=== PATIENT | male | born 2005 | race Caucasian/White ===

== ENCOUNTER 2023-11-20 14:00 | Emergency (ER) | payer SELFPAY | END 2023-11-20 15:22 | disposition home or self-care (01) | LOC: JD.ED 14:00 | DX: S63.501A Unspecified sprain of right wrist, initial encounter (principal); Z91.013 Allergy to seafood; Z79.899 Other long term (current) drug therapy; F17.210 Nicotine dependence, cigarettes, uncomplicated; X50.1XXA Overexertion from prolonged static or awkward postures, initial encounter; Y93.61 Activity, american tackle football | CPT/HCPCS: 99283 ==